=== PATIENT | male | born 2000 | race Caucasian/White ===

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

== ENCOUNTER 2018-01-19 02:32 | Emergency (ER) | payer MEDICAID ==
[~2018-01-19] VITALS: Ht 167.6 cm; Wt 70.3 kg
[2018-01-19 02:53] VITALS: BP_SYST 110
[2018-01-19] MEDS ORDERED: DICYCLOMINE HCL 20 MG/2 ML AMP IM ONE ×2 (03:00→03:15)
[2018-01-19] MEDS ORDERED: DICYCLOMINE HCL 10 MG CAPSULE PO ONE ×2 (03:15→04:00)
[2018-01-19] MEDS ORDERED: DICYCLOMINE HCL 10 MG CAPSULE ONE (03:51)
[2018-01-19 04:20] VITALS: BP_SYST 113
== END 2018-01-19 04:20 | disposition home or self-care (01) ==
LOC: SED 02:32
DX: R10.84 Generalized abdominal pain (principal)
CPT/HCPCS: 99283